=== PATIENT | female | born 1980 | race Caucasian/White ===

== ENCOUNTER 2020-09-25 13:12 | Inpatient (IN) | payer MEDICARE, BC ==
[~2020-09-25] VITALS: Ht 167.6 cm; Wt 66.0 kg
[2020-09-25] MEDS ORDERED: ACETAMINOPHEN 500 MG TAB PO ONE ×2 (13:29→14:00)
[2020-09-25] MEDS ORDERED: SODIUM CHLORIDE 0.9% 1,000 ML IV ONE ×2 (15:30)
[2020-09-25 16:20] LABS: Basophils # (auto) 0 10 ^3/uL (0-0.2); Eosinophils # (auto) 0 10 ^3/uL (0-0.8); Lymphocytes # (auto) 0.4 10 ^3/uL (0.4-5.4); Monocytes # (auto) 0.2 10 ^3/uL (0-1.3); Neutrophils # (auto) 3.6 10 ^3/uL (1.6-8.6); Neutrophils % (auto) 85.7 % (37.0-80.0); Nucleated Red Blood Cells % 0.1 %; Platelet Count (auto) 75 10^3/uL (140-450); White Blood Cell 4.2 10^3/uL (4.4-10.8)
[2020-09-25 16:22] LABS: Basophils % (auto) 0.4 % (0.0-2.0); Hematocrit 13.8 % (36.0-46.0); Lymphocytes % (auto) 9.8 % (10.0-50.0); Mean Corpuscular Hemoglobin 30.4 pg (28.0-32.0); Mean Corpuscular Hgb Conc. 33.9 g/dL (32.0-36.0); Mean Corpuscular Volume 89.7 fL (80.0-100.0); Monocytes % (auto) 4.1 % (0.0-12.0); Red Blood Cells 1.53 10^6/uL (4.0-5.20); Red Cell Distribution Width 16.3 % (11.8-14.3)
[2020-09-25 16:38] LABS: Calcium 8.6 mg/dL (8.5-10.1); INR 1.24 (0.9-1.15); Partial Thromboplastin Time 37.4 sec (23.0-31.2)
[2020-09-25 16:39] LABS: Hemoglobin 4.7 g/dL (12.2-16.2)
[2020-09-25 16:44] LABS: BUN/Creatinine Ratio 5.2; Bilirubin, Total 0.7 mg/dL (0.2-1.0); Total Protein 6.4 g/dL (6.4-8.2)
[2020-09-25] MEDS ORDERED: MORPHINE SULF INJ 2 MG/ML SYRINGE 1ML IV PRN (16:45)
[2020-09-25] MEDS ORDERED: NITROGLYCERIN 0.4 MG SL TAB SL PRN (16:45)
[2020-09-25] MEDS ORDERED: ONDANSETRON HCL 4 MG/2 ML VIAL IV PRN (16:45)
[2020-09-25] MEDS ORDERED: VANCOMYCIN PER PHARMACY 0 MG IV SCH (16:45)
[2020-09-25] MEDS ORDERED: cefTRIAXone 1GM/50ML D5W 50 ML IV ONE (16:45)
[2020-09-25] MEDS ORDERED: ACETAMINOPHEN 500 MG TAB PO PRN (16:45)
[2020-09-25 18:11] LABS: Potassium 2.6 mmol/L (3.5-5.1)
[2020-09-25] MEDS ORDERED: hydrALAZINE HCL 20 MG/ML VL IV PRN (19:00)
[2020-09-25] MEDS ORDERED: POTASSIUM EFFERVESENT TAB 25 MEQ PO ONE (19:00)
[2020-09-25] MEDS ORDERED: VANCOMYCIN 1GM/250ML 250 ML IV ONE (20:15)
[2020-09-25] MEDS: MORPHINE SULF INJ 2 MG/ML SYRINGE 1ML IV PRN (22:45)
[2020-09-25] MEDS: METOPROLOL TARTRATE 25 MG TAB PO SCH (23:16)
[2020-09-25] MEDS: ATORVASTATIN 20 MG TAB PO SCH (23:16)
[2020-09-26] VITALS (8 sets, daily range): BP systolic 81–123; BP diastolic 36–86
[2020-09-26] MEDS: HYDROcodone-ACET 5/325MG TAB PO PRN (03:07)
[2020-09-26] MEDS ORDERED: ALBUMIN 5% 250 ML IV ONE (04:00)
[2020-09-26] MEDS ORDERED: NOREPINEPHRINE 8 MG/250ML KIT 250 ML IV ONE (05:42)
[2020-09-26 06:03] LABS: Basophils # (auto) 0 10 ^3/uL (0-0.2); Basophils % (auto) 0.4 % (0.0-2.0); Eosinophils # (auto) 0 10 ^3/uL (0-0.8); Eosinophils % (auto) 0.1 % (0.0-7.0); Hematocrit 14.5 % (36.0-46.0); Lymphocytes # (auto) 0.3 10 ^3/uL (0.4-5.4); Lymphocytes % (auto) 6.6 % (10.0-50.0); Monocytes # (auto) 0.3 10 ^3/uL (0-1.3); Platelet Count (auto) 58 10^3/uL (140-450); Red Blood Cells 1.63 10^6/uL (4.0-5.20); White Blood Cell 4.7 10^3/uL (4.4-10.8)
[2020-09-26 06:05] LABS: Mean Corpuscular Hemoglobin 30.5 pg (28.0-32.0); Mean Corpuscular Hgb Conc. 34.2 g/dL (32.0-36.0); Mean Corpuscular Volume 89.1 fL (80.0-100.0); Monocytes % (auto) 6.1 % (0.0-12.0); Neutrophils % (auto) 86.8 % (37.0-80.0); Red Cell Distribution Width 16.4 % (11.8-14.3)
[2020-09-26 06:46] LABS: Albumin 1.9 g/dL (3.4-5.0); BUN/Creatinine Ratio 6.2; Bilirubin, Total 0.5 mg/dL (0.2-1.0); Calcium 7.8 mg/dL (8.5-10.1); Total Protein 5.8 g/dL (6.4-8.2)
[2020-09-26 06:51] LABS: Potassium 2.8 mmol/L (3.5-5.1)
[2020-09-26] MEDS ORDERED: PRE5T PO (07:05)
[2020-09-26] MEDS ORDERED: TACR1CAP4 PO (07:05)
[2020-09-26] MEDS: ASPirin-EC 81 mg tab PO SCH (10:00)
[2020-09-26] MEDS ORDERED: FAMOTIDINE 20 MG TAB PO SCH (10:00)
[2020-09-26] MEDS: LISINOPRIL 10 MG TAB PO SCH (10:00)
[2020-09-26] MEDS: FAMOTIDINE 20 MG TAB PO SCH (10:00)
[2020-09-26] MEDS: METOPROLOL TARTRATE 25 MG TAB PO SCH ×2 (10:00→22:40)
[2020-09-26] MEDS ORDERED: VANCOMYCIN 1GM/250ML 250 ML IV ONE (10:00)
[2020-09-26] MEDS: cefTRIAXone 1GM/50ML D5W 50 ML IV SCH (13:44)
[2020-09-26] MEDS: POTASSIUM CHL 20MEQ/100ML 100 ML IV SCH ×3 (15:21→22:45)
[2020-09-26] MEDS ORDERED: POTASSIUM CHL 20MEQ/100ML 100 ML IV ONE (20:40)
[2020-09-26] MEDS: NOREPINEPHRINE 8 MG/250ML KIT 250 ML IV SCH (22:40)
[2020-09-26] MEDS: ATORVASTATIN 20 MG TAB PO SCH (22:50)
[2020-09-27] MEDS: POTASSIUM CHL 20MEQ/100ML 100 ML IV SCH (01:00)
[2020-09-27] MEDS: NOREPINEPHRINE 8 MG/250ML KIT 250 ML IV SCH (05:45)
[2020-09-27 06:03] LABS: Basophils # (auto) 0 10 ^3/uL (0-0.2); Basophils % (auto) 0.2 % (0.0-2.0); Eosinophils # (auto) 0 10 ^3/uL (0-0.8); Hematocrit 24.8 % (36.0-46.0); Hemoglobin 8.4 g/dL (12.2-16.2); Lymphocytes # (auto) 0.5 10 ^3/uL (0.4-5.4); Lymphocytes % (auto) 18.1 % (10.0-50.0); Mean Corpuscular Hemoglobin 29.9 pg (28.0-32.0); Monocytes # (auto) 0.2 10 ^3/uL (0-1.3); Monocytes % (auto) 6.1 % (0.0-12.0); Neutrophils % (auto) 74.6 % (37.0-80.0); Nucleated Red Blood Cells % 0.1 %; Platelet Count (auto) 66 10^3/uL (140-450); Red Blood Cells 2.82 10^6/uL (4.0-5.20); Red Cell Distribution Width 15.7 % (11.8-14.3); White Blood Cell 2.7 10^3/uL (4.4-10.8)
[2020-09-27 06:12] LABS: Potassium 3.2 mmol/L (3.5-5.1)
[2020-09-27 06:18] LABS: Albumin 1.8 g/dL (3.4-5.0); BUN/Creatinine Ratio 7.3
[2020-09-27 06:20] LABS: Bilirubin, Total 0.6 mg/dL (0.2-1.0)
[2020-09-27] MEDS ORDERED: SODIUM CHL 0.9% 1000 ML BAG XX ONE ×2 (07:00→21:00)
[2020-09-27] MEDS: cefTRIAXone 1GM/50ML D5W 50 ML IV SCH (08:32)
[2020-09-27] MEDS: ASPirin-EC 81 mg tab PO SCH (08:58)
[2020-09-27] MEDS: METOPROLOL TARTRATE 25 MG TAB PO SCH ×2 (08:58→23:24)
[2020-09-27] MEDS: LISINOPRIL 10 MG TAB PO SCH (08:59)
[2020-09-27] MEDS ORDERED: POTASSIUM CHL 20MEQ/100ML 100 ML IV ONE (10:30)
[2020-09-27] MEDS ORDERED: VANCOMYCIN 1GM/250ML 250 ML IV ONE (11:30)
[2020-09-27] MEDS: LORazepam 0.5 MG TAB PO PRN (16:14)
[2020-09-27] MEDS ORDERED: EPOETIN ALFA 10,000 UNIT/1 ML VIAL SC ONE (21:00)
[2020-09-27] MEDS: ATORVASTATIN 20 MG TAB PO SCH (23:23)
[2020-09-28] MEDS: NOREPINEPHRINE 8 MG/250ML KIT 250 ML IV SCH (05:45)
[2020-09-28 08:15] LABS: Basophils # (auto) 0 10 ^3/uL (0-0.2); Eosinophils # (auto) 0 10 ^3/uL (0-0.8); Hemoglobin 8.6 g/dL (12.2-16.2); Lymphocytes # (auto) 0.6 10 ^3/uL (0.4-5.4); Mean Corpuscular Hgb Conc. 33.7 g/dL (32.0-36.0); Monocytes # (auto) 0.2 10 ^3/uL (0-1.3); Monocytes % (auto) 8.3 % (0.0-12.0); Nucleated Red Blood Cells % 0.1 %; Platelet Count (auto) 64 10^3/uL (140-450)
[2020-09-28 08:18] LABS: Basophils % (auto) 0.4 % (0.0-2.0); Eosinophils % (auto) 1.1 % (0.0-7.0); Hematocrit 25.5 % (36.0-46.0); Lymphocytes % (auto) 20.8 % (10.0-50.0); Mean Corpuscular Hemoglobin 29.6 pg (28.0-32.0); Mean Corpuscular Volume 87.9 fL (80.0-100.0); Neutrophils % (auto) 69.4 % (37.0-80.0); Red Cell Distribution Width 15.9 % (11.8-14.3); White Blood Cell 2.9 10^3/uL (4.4-10.8)
[2020-09-28 08:33] LABS: Potassium 3.3 mmol/L (3.5-5.1)
[2020-09-28 08:41] LABS: Albumin 1.7 g/dL (3.4-5.0); BUN/Creatinine Ratio 7.7; Bilirubin, Total 0.4 mg/dL (0.2-1.0); Calcium 8.7 mg/dL (8.5-10.1)
[2020-09-28 09:00] VITALS: BP 116/62
[2020-09-28] MEDS ORDERED: SODIUM CHL 0.9% 1000 ML BAG XX ONE (09:30)
[2020-09-28] MEDS: METOPROLOL TARTRATE 25 MG TAB PO SCH ×2 (10:00→22:00)
[2020-09-28] MEDS: LISINOPRIL 10 MG TAB PO SCH (10:00)
[2020-09-28] MEDS: FAMOTIDINE 20 MG TAB PO SCH (10:00)
[2020-09-28] MEDS: ASPirin-EC 81 mg tab PO SCH (10:00)
--- NOTE | 2020-09-28 10:45 | NUR ---
Telemetry admit from ER KERWIN ANDERSON admitted to Telemetry unit after SBAR received. Patient oriented to JOHANNA SCHULZ, primary RN, Telemetry, 297-A bed and unit policies regarding patient care. Patient now on continuous telemetry monitoring, tele box # [90] and telemetry reading on arrival to unit is [SR in the 80's]. Patient weighed by bedscale; is on room air and is encouraged to call if they need something. All questions and concerns addressed, patient verbalized understanding.
[2020-09-28] MEDS ORDERED: AMLO10TA13 PO (12:25)
[2020-09-28] MEDS ORDERED: CARV25TA55 PO (12:25)
[2020-09-28] MEDS: LORazepam 0.5 MG TAB PO PRN (12:41)
[2020-09-28] MEDS ORDERED: levoFLOXacin 500MG 100 ML IV ONE (12:45)
[2020-09-28 13:00] VITALS: BP 122/68
[2020-09-28 17:00] VITALS: BP 132/75
--- NOTE | 2020-09-28 19:15 | NUR ---
Opening Shift Note Assumed care of patient, awake and alert. No S/S of distress/SOB or pain. Bed is locked in lowest position with call light within reach. Instructed on POC and to call for assist PRN, will continue to monitor for changes Q1hr and PRN.
[2020-09-28] MEDS ORDERED: EPOETIN ALFA 10,000 UNIT/1 ML VIAL SC ONE (21:00)
[2020-09-28 22:00] VITALS: BP 141/92
[2020-09-28] MEDS: ATORVASTATIN 20 MG TAB PO SCH (22:00)
[2020-09-28] MEDS: MORPHINE SULF INJ 2 MG/ML SYRINGE 1ML IV PRN (22:38)
[2020-09-29 05:00] VITALS: BP 134/80
--- NOTE | 2020-09-29 07:30 | NUR ---
Opening Shift Note Assumed care of patient, she appears to be resting in bed. No S/S of distress/SOB. Instructed on POC and to call for assist PRN, will continue to monitor for changes Q1hr and PRN. Patient in the lowest possible position with call light within reach, bed rails up x2.
[2020-09-29 08:10] LABS: Basophils # (auto) 0 10 ^3/uL (0-0.2); Basophils % (auto) 0.3 % (0.0-2.0); Eosinophils # (auto) 0 10 ^3/uL (0-0.8); Lymphocytes # (auto) 0.8 10 ^3/uL (0.4-5.4); Mean Corpuscular Hemoglobin 29.6 pg (28.0-32.0); Monocytes # (auto) 0.3 10 ^3/uL (0-1.3); Red Cell Distribution Width 15.3 % (11.8-14.3); White Blood Cell 3.2 10^3/uL (4.4-10.8)
[2020-09-29 08:12] LABS: Eosinophils % (auto) 0.6 % (0.0-7.0); Hematocrit 23.6 % (36.0-46.0); Lymphocytes % (auto) 25.6 % (10.0-50.0); Mean Corpuscular Hgb Conc. 33.7 g/dL (32.0-36.0); Mean Corpuscular Volume 87.9 fL (80.0-100.0); Monocytes % (auto) 8.3 % (0.0-12.0); Neutrophils # (auto) 2.1 10 ^3/uL (1.6-8.6); Neutrophils % (auto) 65.2 % (37.0-80.0); Nucleated Red Blood Cells % 0.1 %; Platelet Count (auto) 59 10^3/uL (140-450); Red Blood Cells 2.68 10^6/uL (4.0-5.20)
[2020-09-29 08:39] LABS: Albumin 1.7 g/dL (3.4-5.0); BUN/Creatinine Ratio 5.4; Bilirubin, Total 0.5 mg/dL (0.2-1.0); Calcium 8.4 mg/dL (8.5-10.1); Total Protein 5.9 g/dL (6.4-8.2)
[2020-09-29 08:45] LABS: Potassium 2.8 mmol/L (3.5-5.1)
--- NOTE | 2020-09-29 08:48 | NUR ---
THIS RN RECEIVED A CRITICAL POTASSIUM LEVEL OF 2.8. DR. MODI IS AWARE.
[2020-09-29 09:00] VITALS: BP 137/69
[2020-09-29] MEDS ORDERED: POTASSIUM CHL 20 Meq TABLET PO ONE ×2 (10:00→14:00)
--- NOTE | 2020-09-29 10:57 | NUR ---
This RN spoke to pharmacy about pt. own medication (tracrolimus).They will send up medication as soon as possible.
[2020-09-29] MEDS: predniSONE 5 MG TAB PO SCH (11:17)
[2020-09-29] MEDS: levoFLOXacin 250MG 50 ML IV SCH (11:17)
[2020-09-29] MEDS: ASPirin-EC 81 mg tab PO SCH (11:18)
[2020-09-29] MEDS: METOPROLOL TARTRATE 25 MG TAB PO SCH ×2 (11:19→21:43)
[2020-09-29] MEDS: LISINOPRIL 10 MG TAB PO SCH (11:20)
[2020-09-29] MEDS: TACROLIMUS 1 MG CAP PO SCH ×2 (11:36→22:00)
--- NOTE | 2020-09-29 12:19 | NUR ---
Nutrition Assessment Est energy needs 7620-8850 kcal (25-30 kcal/kg BW 66kg) est protein needs 79-92g (1.2-1.4g/kg BW 66kg r/t ESRD on HD) Will monitor and reassess prn. Addendum: 09/29/20 at [address] Amended: Links added.
[2020-09-29 13:00] VITALS: BP 149/79
--- NOTE | 2020-09-29 13:00 | NUR ---
Pt. pulse ox on room air 91%. This RN emphasized to pt. the importance of supplemental oxygen. She put on the NC at 2 L and her pulse oxygen increased 98%. This RN will continue to monitor pt.
[2020-09-29 17:00] VITALS: BP 135/79
--- NOTE | 2020-09-29 20:25 | NUR ---
open note assumed care of pt, upon entering room pt awake alert and oriented on 2L nc with no distress observed or reported. pt oriented to this nurse and updated on plan of care. pt bed locked, low ans 2x rails up. call light in reach, pt encouraged to call as needed. this nurse to round q1hr and prn.
[2020-09-29] MEDS: ATORVASTATIN 20 MG TAB PO SCH (21:42)
[2020-09-29] MEDS: MORPHINE SULF INJ 2 MG/ML SYRINGE 1ML IV PRN (21:43)
[2020-09-29 22:38] VITALS: BP 120/69
[2020-09-30] MEDS: HYDROcodone-ACET 5/325MG TAB PO PRN (01:20)
[2020-09-30] MEDS: MORPHINE SULF INJ 2 MG/ML SYRINGE 1ML IV PRN ×2 (02:20→22:02)
[2020-09-30 05:36] VITALS: BP 140/80
--- NOTE | 2020-09-30 07:20 | NUR ---
Opening Shift Note Assumed care of patient, alert and awake x4. No S/S of distress/SOB. Instructed on POC and to call for assist PRN, will continue to monitor for changes Q1hr and PRN. Patient in the lowest possible position with call light within reach, bed rails up x2.
[2020-09-30 08:00] VITALS: BP 126/71
[2020-09-30] MEDS: LISINOPRIL 10 MG TAB PO SCH (09:53)
[2020-09-30] MEDS: FAMOTIDINE 20 MG TAB PO SCH (09:54)
[2020-09-30] MEDS: METOPROLOL TARTRATE 25 MG TAB PO SCH ×2 (09:54→21:55)
[2020-09-30] MEDS: predniSONE 5 MG TAB PO SCH (09:54)
[2020-09-30] MEDS: TACROLIMUS 1 MG CAP PO SCH ×2 (09:54→21:53)
[2020-09-30] MEDS: ASPirin-EC 81 mg tab PO SCH (09:59)
[2020-09-30 11:32] LABS: Basophils # (auto) 0 10 ^3/uL (0-0.2); Basophils % (auto) 0.4 % (0.0-2.0); Eosinophils # (auto) 0 10 ^3/uL (0-0.8); Eosinophils % (auto) 1.3 % (0.0-7.0); Lymphocytes # (auto) 0.8 10 ^3/uL (0.4-5.4); Monocytes # (auto) 0.3 10 ^3/uL (0-1.3)
[2020-09-30 11:33] LABS: Hematocrit 23.9 % (36.0-46.0); Hemoglobin 8.3 g/dL (12.2-16.2); Lymphocytes % (auto) 28.1 % (10.0-50.0); Mean Corpuscular Hemoglobin 30.5 pg (28.0-32.0); Mean Corpuscular Hgb Conc. 34.6 g/dL (32.0-36.0); Mean Corpuscular Volume 88.2 fL (80.0-100.0); Monocytes % (auto) 8.7 % (0.0-12.0); Neutrophils # (auto) 1.8 10 ^3/uL (1.6-8.6); Neutrophils % (auto) 61.5 % (37.0-80.0); Nucleated Red Blood Cells % 0.3 %; Platelet Count (auto) 60 10^3/uL (140-450); Red Blood Cells 2.71 10^6/uL (4.0-5.20); Red Cell Distribution Width 15.4 % (11.8-14.3)
[2020-09-30 11:46] LABS: Albumin 1.7 g/dL (3.4-5.0); Calcium 8.7 mg/dL (8.5-10.1); Potassium 3.4 mmol/L (3.5-5.1)
[2020-09-30 11:49] LABS: BUN/Creatinine Ratio 5.4; Bilirubin, Total 0.5 mg/dL (0.2-1.0); Total Protein 5.8 g/dL (6.4-8.2)
[2020-09-30 12:00] VITALS: BP 132/78
[2020-09-30 16:00] VITALS: BP 140/87
[2020-09-30] MEDS: ATORVASTATIN 20 MG TAB PO SCH (21:54)
[2020-09-30 23:47] VITALS: BP 141/88
[2020-10-01] MEDS: MORPHINE SULF INJ 2 MG/ML SYRINGE 1ML IV PRN (05:54)
[2020-10-01 06:26] VITALS: BP 138/90
[2020-10-01] MEDS ORDERED: SODIUM CHL 0.9% 1000 ML BAG XX ONE (07:00)
[2020-10-01 08:14] LABS: Basophils # (auto) 0 10 ^3/uL (0-0.2); Basophils % (auto) 0.4 % (0.0-2.0); Eosinophils # (auto) 0 10 ^3/uL (0-0.8); Eosinophils % (auto) 1.2 % (0.0-7.0); Hemoglobin 8.3 g/dL (12.2-16.2); Lymphocytes # (auto) 0.9 10 ^3/uL (0.4-5.4); Monocytes # (auto) 0.3 10 ^3/uL (0-1.3); Neutrophils # (auto) 2.1 10 ^3/uL (1.6-8.6); Nucleated Red Blood Cells % 0.1 %
[2020-10-01 08:17] LABS: Hematocrit 25.1 % (36.0-46.0); Mean Corpuscular Hemoglobin 29.4 pg (28.0-32.0); Mean Corpuscular Volume 89.1 fL (80.0-100.0); Monocytes % (auto) 9.1 % (0.0-12.0); Neutrophils % (auto) 63.3 % (37.0-80.0); Platelet Count (auto) 72 10^3/uL (140-450); Red Blood Cells 2.81 10^6/uL (4.0-5.20); Red Cell Distribution Width 15.5 % (11.8-14.3); White Blood Cell 3.4 10^3/uL (4.4-10.8)
[2020-10-01 08:30] LABS: Albumin 1.6 g/dL (3.4-5.0); Calcium 8.6 mg/dL (8.5-10.1); Potassium 3.7 mmol/L (3.5-5.1)
[2020-10-01 08:35] LABS: BUN/Creatinine Ratio 5.3; Bilirubin, Total 0.6 mg/dL (0.2-1.0); Total Protein 5.8 g/dL (6.4-8.2)
[2020-10-01 09:00] VITALS: BP 136/79
[2020-10-01] MEDS: predniSONE 5 MG TAB PO SCH (10:44)
[2020-10-01] MEDS: levoFLOXacin 250MG 50 ML IV SCH (10:44)
[2020-10-01] MEDS: LISINOPRIL 10 MG TAB PO SCH (10:45)
[2020-10-01] MEDS: TACROLIMUS 1 MG CAP PO SCH (11:00)
[2020-10-01] MEDS: METOPROLOL TARTRATE 25 MG TAB PO SCH (11:01)
[2020-10-01 13:00] VITALS: BP 151/88
[2020-10-01] MEDS ORDERED: ceFAZolin 1GM/50ML 50 ML IV SCH (15:00)
[2020-10-01 17:00] VITALS: BP 146/79
--- NOTE | 2020-10-01 18:30 | NUR ---
Patient has a discharge order to home. discharge paper given to patient and verbalized understanding. patient had dialysis in the afternoon and finished around 1900. discontinued peripheral IV lines and tele. Returned patient's own home medications. tele box 90 given to material handler 2nd shift RN to send it down to ICU because the tubing system was down and not able to send it.
--- NOTE | 2020-10-01 19:35 | NUR ---
DISCHARGE Discharge instructions given as ordered by day shift RN. Encourage to follow up with PMD as instructed. All questions and concerns addressed. Patient verbalized understanding. Home medications held in Pharmacy returned to patient by day shift RN. IV removed with catheter intact, pressure dressing applied by day shift RN. Telemetry unit returned to ICU. Patient taken to vehicle via wheelchair with all personal belongings, accompanied by staff. No distress noted at time of departure.
[2020-10-01] MEDS ORDERED: EPOETIN ALFA 10,000 UNIT/1 ML VIAL SC ONE (21:00)
== END 2020-10-01 19:35 | disposition home or self-care (01) | DRG 871 ==
LOC: EDBD 13:12 → ER 13:12 → TELE 13:13 → TELE-WESTW 09-28 08:41
PROVIDERS: ADMIT Nurse Practitioner Acute Care; ATTEND Family Medicine
PROC: 30233N1 Transfusion of Nonautologous Red Blood Cells into Peripheral Vein, Percutaneous Approach (ICD-10-PCS; principal; 2020-09-26)
PROC: 5A1D70Z Performance of Urinary Filtration, Intermittent, Less than 6 Hours Per Day (ICD-10-PCS; 2020-09-28)
PROC: 5A1D70Z Performance of Urinary Filtration, Intermittent, Less than 6 Hours Per Day (ICD-10-PCS; 2020-10-01)
DX: A41.01 Sepsis due to Methicillin susceptible Staphylococcus aureus (principal); G93.41 Metabolic encephalopathy; N18.6 End stage renal disease; I21.4 Non-ST elevation (NSTEMI) myocardial infarction; I50.43 Acute on chronic combined systolic (congestive) and diastolic (congestive) heart failure; I13.2 Hypertensive heart and chronic kidney disease with heart failure and with stage 5 chronic kidney disease, or end stage renal disease; Z94.4 Liver transplant status; Z94.0 Kidney transplant status; D64.9 Anemia, unspecified; R82.992 Hyperoxaluria; E87.6 Hypokalemia; E78.00 Pure hypercholesterolemia, unspecified; E88.09 Other disorders of plasma-protein metabolism, not elsewhere classified; I07.1 Rheumatic tricuspid insufficiency; R65.20 Severe sepsis without septic shock; Z20.828 Contact with and (suspected) exposure to other viral communicable diseases; Z99.2 Dependence on renal dialysis
CPT/HCPCS: 36415; 70450; 71045; 76705; 80053; 80197; 80202; 82306; 83605; 83880; 83970; 84100; 84484; 84702; 85025; 85610; 85730; 86141; 86850; 86900; 86901; 86920; 87040; 87077; 87186; 87426; 90935; 93306; 96360; 99291; G0378; J0690; J0696; J0885; J2405; J3480; J7507